=== PATIENT | male | born 1980 | race American Indian/Alaskan Native ===

== ENCOUNTER 2017-05-18 12:37 | Outpatient (CLI) | payer OTHER ==
[2017-05-18 13:15] LABS: Blood Urea Nitrogen 11 mg/dL (9-20)
--- NOTE | 2017-05-18 16:26 | Cat Scan Report ---
FINAL REPORT EXAM: CT ABDOMEN PELVIS W CON HISTORY: VENOUS INSUFFICIENCY TECHNIQUE: CT examination of the ABDOMEN after IV contrast CT examination of the PELVIS after IV contrast PRIORS: None. FINDINGS: Proximal femur hardware partly imaged bilaterally. Small gallbladder densities suggestive of gallstones. No CT evidence of other biliary pathology. Normal-appearing liver, adrenals, pancreas, and spleen. Intact normal caliber abdominal aorta. IVC filter in place. Nonspecific prominence of retroperitoneal vessels may reflect varices. No renal calculus or hydronephrosis. No calculus or distention in the visible ureteral segments. Distal ureters obscured by adjacent anatomy. Small fat containing umbilical hernia. Normal-appearing stomach and duodenum. No small bowel distention in the abdomen and pelvis. No pelvic free fluid. Normal-appearing urinary bladder, prostate, seminal vesicles, and rectum. No gross ascites, free air, or colonic distention. Normal-appearing cecum, terminal ileum, and appendix. IMPRESSION: Small gallbladder densities suggestive of gallstones IVC filter in place. Nonspecific prominence of retroperitoneal vessels may reflect varices, right more than left
== END 2017-05-18 12:38 | disposition home or self-care (01) ==
LOC: CT 12:37
PROVIDERS: ATTEND Radiology Diagnostic Radiology
DX: I87.2 Venous insufficiency (chronic) (peripheral) (principal); K42.9 Umbilical hernia without obstruction or gangrene
CPT/HCPCS: 36415; 74177; 82565; 84520; Q9967

== ENCOUNTER 2017-05-20 08:45 | Day surgery (SDC) | payer OTHER ==
[~2017-05-20 08:45] MED LIST: ANCEF/STERILE WATER 2 GM/20 ML 2 GM/20 ML SYRINGE IV NR; NACL 0.9% 1000 ML 1,000 ML IV SCH
[2017-05-20 09:44] LABS: Basophils % (Auto) 0.3 % (0.0-1.8); Eosinophils % (Auto) 2.3 % (0.0-4.3); Hematocrit 41.6 % (35.5-45.6); Hemoglobin 13.6 gm/dl (11.8-15.2); Mean Corpuscular HGB Conc 33 % (32-34); Mean Corpuscular Hemoglobin 29 pg (28-32); Mean Corpuscular Volume 88 fl (84-94); Platelet Count 174 K/mm3 (140-440); Red Blood Count 4.71 M/mm3 (3.65-5.03); Red Cell Distribution Width 15.2 % (13.2-15.2); White Blood Count 4.9 K/mm3 (4.5-11.0)
[2017-05-20] MEDS ORDERED: HEPARIN 10,000 UNITS/10 ML ONE (09:48)
[2017-05-20] MEDS ORDERED: ANCEF/STERILE WATER 2 GM/20 ML 2 GM/20 ML SYRINGE IV ONE (09:48)
[2017-05-20] MEDS ORDERED: HEPARIN/NS 5000 UNIT/500ML(CATH LAB) 1,000 ML IR ONE (09:49)
[2017-05-20 09:59] LABS: Anion Gap 17 mmol/L; BUN/Creatinine Ratio 16; Blood Urea Nitrogen 14 mg/dL (9-20); Calcium 8.6 mg/dL (8.4-10.2); Carbon Dioxide 26 mmol/L (22-30); Chloride 101.7 mmol/L (98-107); Glucose 105 mg/dL (75-100); Potassium 4.4 mmol/L (3.6-5.0); Sodium 140 mmol/L (137-145)
[2017-05-20] MEDS: VERSED ONE ×2 (10:42→10:45)
[2017-05-20] MEDS: XYLOCAINE 2% INFILTRATI ONE ×2 (10:42→10:46)
[2017-05-20] MEDS: SUBLIMAZE ONE ×2 (10:42→10:44)
--- NOTE | 2017-05-20 11:41 | Short Stay Summary ---
Short Stay Documentation Date of service: 05/20/17 - History Principal diagnosis: Venous insufficiency H&P: obtained from office - Allergies and Medications Current Medications: Allergies No Known Allergies Allergy (Unverified 05/18/17 12:37) Home Medications Medication Instructions Recorded Confirmed Last Taken Type Sertraline [Zoloft] 100 mg PO DAILY 05/20/17 05/20/17 05/18/17 History 100mg Active Medications Cefazolin Sodium (Ancef/Sterile Water 2 Gm/20 Ml) 2 gm in 20 mls @ 80 mls/hr IV PREOP NR PRN Reason: Protocol Stop: 05/20/17 23:01 Sodium Chloride (Nacl 0.9% 1000 Ml) 1,000 mls @ 42 mls/hr IV DIRECT BETTY Last Admin: 05/20/17 09:48 Dose: 42 mls/hr - Brief post op/procedure progress note Date of procedure: 05/20/17 Pre-op diagnosis: Venous insufficiency Post-op diagnosis: same Procedure: IVC filter removal Anesthesia: local Surgeon: HOLA PUENTES Estimated blood loss: none Condition: stable - Disposition Condition at discharge: Good Disposition: DC-01 TO HOME OR SELFCARE Short Stay Discharge Plan Activity: advance as tolerated Weight Bearing Status: Weight Bear as Tolerated Diet: regular Wound: keep clean and dry, per your surgeon's advice
--- NOTE | 2017-05-20 11:45 | Operative Report ---
Operative Report Operative Report: EXAM: IVC FILTER REMOVAL CLINICAL INDICATION: PATIENT WITH A HISTORY OF IVC FILTER PLACED IN 2007, OUTSIDE EVALUATION DEMONSTRATES SCARRING AND NARROWING OF THE IVC WITH SYMPTOMATICALLY VENOUS INSUFFICIENCY IN BILATERAL LOWER EXTREMITIES DATE: 05/20/2017 PROCEDURE: Following an expiration of the risks, benefits and alternatives; written informed consent was obtained. The patient was brought to the intrinsic suite and placed in prone position on the examination table. Initial ultrasound evaluation of the neck and started widely patent right internal jugular vein. The right neck was prepped and draped in the usual sterile fashion. 1% lidocaine was used for anesthesia. Under ultrasound guidance, the right internal jugular vein was cannulated with a 7 cm 18-gauge needle. A 0.035 guidewire was advanced into the IVC under fluoroscopy. The needle was removed and a [address] [place] [address] 5 [place] flush catheter was advanced over the guidewire and together the guidewire and catheter were advanced just distal to the IVC filter. Contrast was injected which demonstrates no intraluminal thrombus however, there is significant scarring in narrowing of the IVC. One of the limbs of the IVC has perforated to the IVC and appears somewhat lateral. The limbs all appear to be connected to the IVC filter. A Bard IVC filter retrieval cone was advanced over the guidewire through the retrieval sheath. The retrieval cone was then advanced to capture the filter proximally. The sheath was attempted to be advanced over the filter to collapsed limbs however, this was initially not successful. The retrieval sheath and cone were removed over the guidewire and a 14 [place] sheath placed over the guidewire under fluoroscopy and advanced to the margin of the filter. The retrieval cone and retrieval sheath were then advanced ruining in the filter was snared. The 14 [place] sheath was then advanced over the filter and the filter retracted to capture all of the limbs. The sheath was then advanced over the filter collapsing it in the filter was removed intact. Fluoroscopic images were saved to document no retained filter fragments. Contrast was then injected through the sheath which demonstrated no extravasation. The sheath was removed and hemostasis achieved in the neck using 3-0 Vicryl suture and Dermabond. A sterile dressing was then applied. The patient tolerated the procedure well. There were no immediate post procedure complications. Conscious sedation was performed in the guidance of radiologic nursing. Continuous cardiopulmonary monitoring was utilized. IMPRESSION: 1) IVC filter retrieval with removal of an intact G2 Bard filter placed in 2007.
[2017-05-20 15:08] VITALS: BP 107/70
--- NOTE | 2017-05-23 07:41 | Vascular Lab Report ---
MISCELLANEOUS VESSEL IDENTIFICATION: COMMENTS ON THE SCAN: The right internal jugular vein was identified and under real-time ultrasound guidance was cannulated. IMPRESSION: Successful ultrasound guided vein cannulation.
== END 2017-05-20 15:00 | disposition home or self-care (01) ==
LOC: CATHLABREC 08:45
PROVIDERS: ATTEND Radiology Diagnostic Radiology
DX: I87.2 Venous insufficiency (chronic) (peripheral) (principal); I87.1 Compression of vein; F41.9 Anxiety disorder, unspecified; M19.90 Unspecified osteoarthritis, unspecified site; Z79.899 Other long term (current) drug therapy; Z98.890 Other specified postprocedural states
CPT/HCPCS: 36415; 37193; 76937; 80048; 85025; J0690; J1644; J2250; J3010; J7030; Q9967

== ENCOUNTER 2017-09-14 06:13 | Day surgery (SDC) | payer OTHER ==
[2017-09-14 07:31] LABS: Basophils % (Auto) 0.7 % (0.0-1.8); Eosinophils # (Auto) 0.1 K/mm3 (0.0-0.4); Eosinophils % (Auto) 1.4 % (0.0-4.3); Hematocrit 39.6 % (35.5-45.6); Hemoglobin 12.7 gm/dl (11.8-15.2); Lymphocytes # (Auto) 1.9 K/mm3 (1.2-5.4); Lymphocytes % (Auto) 36.5 % (13.4-35.0); Mean Corpuscular HGB Conc 32 % (32-34); Mean Corpuscular Hemoglobin 29 pg (28-32); Mean Corpuscular Volume 89 fl (84-94); Monocytes # (Auto) 0.5 K/mm3 (0.0-0.8); Monocytes % (Auto) 10.2 % (0.0-7.3); Platelet Count 183 K/mm3 (140-440); Red Blood Count 4.47 M/mm3 (3.65-5.03); Red Cell Distribution Width 14.7 % (13.2-15.2)
[2017-09-14 07:39] LABS: BUN/Creatinine Ratio 16; Blood Urea Nitrogen 16 mg/dL (9-20); Calcium 8.7 mg/dL (8.4-10.2); Hemolysis Index 20
[2017-09-14 07:40] LABS: INR 0.89 (0.87-1.13)
[2017-09-14 07:41] LABS: Partial Thromboplastin Time 28.9 Sec. (24.2-36.6)
[2017-09-14] MEDS ORDERED: HEPARIN/NS 5000 UNIT/500ML(CATH LAB) 1,000 ML IR ONE (08:15)
[2017-09-14] MEDS ORDERED: XYLOCAINE 2% INFILTRATI ONE (08:15)
[2017-09-14] MEDS ORDERED: HEPARIN 10,000 UNITS/10 ML ONE (08:15)
[2017-09-14] MEDS ORDERED: SUBLIMAZE ONE (08:16)
[2017-09-14] MEDS ORDERED: VERSED ONE (08:16)
[2017-09-14] MEDS ORDERED: ANCEF/STERILE WATER 2 GM/20 ML 2 GM/20 ML SYRINGE IV ONE (08:16)
[2017-09-14] MEDS ORDERED: TORADOL ONE (09:03)
--- NOTE | 2017-09-14 09:09 | Short Stay Summary ---
Short Stay Documentation Date of service: 09/14/17 - History Principal diagnosis: RLE venous hypertension with pain and swelling H&P: obtained from office - Allergies and Medications Current Medications: Allergies No Known Allergies Allergy (Unverified 05/18/17 12:37) Home Medications Medication Instructions Recorded Confirmed Last Taken Type Sertraline [Zoloft] 100 mg PO DAILY 05/20/17 09/14/17 09/12/17 History Cyclobenzaprine [Flexeril] 10 mg PO QHS 09/14/17 09/14/17 09/12/17 History Gabapentin [Neurontin] 100 mg PO TID 09/14/17 09/14/17 09/12/17 History Prazosin [Minipress] 2 mg PO QPM 09/14/17 09/14/17 09/12/17 History Active Medications Cefazolin Sodium (Ancef/Sterile Water 2 Gm/20 Ml) 2 gm in 20 mls @ 80 mls/hr IV PREOP NR; Protocol Stop: 09/14/17 23:59 Sodium Chloride (Nacl 0.9% 1000 Ml) 1,000 mls @ 42 mls/hr IV DIRECT BETTY Last Admin: 09/14/17 08:00 Dose: 42 mls/hr - Brief post op/procedure progress note Date of procedure: 09/14/17 Pre-op diagnosis: RLE venous hypertension with pain and swelling Post-op diagnosis: same Procedure: E venogram, venoplasty and stent Anesthesia: local Surgeon: HOLA PUENTES Estimated blood loss: minimal Pathology: none Condition: stable - Disposition Condition at discharge: Good Disposition: DC-01 TO HOME OR SELFCARE Short Stay Discharge Plan Activity: advance as tolerated Weight Bearing Status: Weight Bear as Tolerated Diet: regular Wound: keep clean and dry, per your surgeon's advice Follow up with: SEPIDEH MO MD [Primary Care Provider] - 7 Days
--- NOTE | 2017-09-14 09:15 | Operative Report ---
Operative Report Operative Report: EXAM: RIGHT LOWER EXTREMITY VENOGRAM, ANOPLASTY WITH STENT PLACEMENT CLINICAL INDICATION: RIGHT LOWER EXTREMITY VENOUS HYPERTENSION WITH SWELLING AND PAIN DATE: 09/14/2017 PROCEDURE: Following an explanation of the risks, benefits and alternatives; written informed consent was obtained. The patient was brought to the injury graphic suite and placed in prone position on the examination table. Initial ultrasound evaluation of the popliteal fossa demonstrate a patent short saphenous vein. The patient's popliteal fossa was prepped and draped in the usual sterile fashion. 1% lidocaine was used for anesthesia. Under ultrasound guidance, the patient's right short saphenous vein was cannulated with a 7 cm 18-gauge needle. A 0.035 guidewire was advanced proximally and the needle exchanged for a 5 [place] sheath. Contrast was injected through the sheath which demonstrate a patent superficial femoral vein. A 4 [place] vertebral catheter was advanced over the guidewire and together the guidewire and catheter advanced into the proximal superficial femoral vein. Venography was performed at this point with imaging obtained of the pelvis and IVC. 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 Together the catheter and guidewire were then advanced into the IVC. IVC is widely patent with previously placed stents widely patent. There is flow throughout the system with delayed outflow secondary to the synechiae. The synechia neural lumen of the external iliac vein and common femoral vein and multiple locations to 60-70%. No thrombus is identified throughout the entire right lower extremity system. With the guidewire advanced through the lesions and anchored in the IVC, a 16 mm x 90 mm Wallstent was advanced and deployed to cover the lesions in both the right external iliac vein and right common femoral vein. Initial attempts to see the stent with a 14 mm XXL balloon were unsuccessful as the lesions were too narrow. A 12 mm [place] balloon was then advanced and used to predilated the stent. The 14 mm XXL balloon was then used to seat the stent. The balloon was then removed. Post stent and venoplasty imaging demonstrated brisk flow throughout the right lower extremity system. The catheters, guidewires and sheaths were removed and hemostasis achieved using manual compression. A sterile compression dressing was then applied. The patient tolerated the procedure well. There were no immediate post procedure complications. Conscious sedation was performed under the guidance of radiologic nursing. Continuous cardiopulmonary monitoring was utilized. IMPRESSION: 1) Right lower extremity venogram demonstrating previously placed stents within the IVC and right common iliac vein to be widely patent. 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 2) Venoplasty with stent placement as described with residual less than 10% stenosis in the right external iliac vein and right common femoral vein.
[2017-09-14 11:18] VITALS: BP 109/69
== END 2017-09-14 11:50 | disposition home or self-care (01) ==
LOC: CATHLABREC 06:13 → CATH 06:13 → CATHLABREC 11:50
PROVIDERS: ATTEND Radiology Diagnostic Radiology
DX: I87.311 Chronic venous hypertension (idiopathic) with ulcer of right lower extremity (principal); M19.90 Unspecified osteoarthritis, unspecified site; F17.200 Nicotine dependence, unspecified, uncomplicated; E66.9 Obesity, unspecified; Z68.35 Body mass index [BMI] 35.0-35.9, adult; Z96.652 Presence of left artificial knee joint; Z98.890 Other specified postprocedural states; Z79.01 Long term (current) use of anticoagulants
CPT/HCPCS: 36415; 37238; 75820; 80048; 85025; 85610; 85730; 99156; 99157; C1725; C1751; C1769; C1876; C1887; C1894; J0690; J1644; J1885; J2250; J3010; J7030; Q9967